=== PATIENT | female | born 1950 | race Caucasian/White ===

== ENCOUNTER 2016-08-25 08:43 | Outpatient (CLI) | payer OTHER | END 2016-08-25 08:44 | disposition home or self-care (01) | DX: M85.89 Other specified disorders of bone density and structure, multiple sites (principal); Z78.0 Asymptomatic menopausal state ==

== ENCOUNTER 2016-08-25 08:46 | Outpatient (CLI) | payer OTHER | END 2016-08-25 08:47 | disposition home or self-care (01) | DX: Z12.31 Encounter for screening mammogram for malignant neoplasm of breast (principal) ==

== ENCOUNTER 2016-09-05 09:09 | Day surgery (SDC) | payer OTHER ==
[2016-09-05] MEDS ORDERED: LACTATED RINGERS 1,000 ML IV ONE (10:28)
[2016-09-05] MEDS ORDERED: fentaNYL 250 MCG/5 ML VIAL IVP ONE (11:04)
[2016-09-05] MEDS ORDERED: MIDAZOLAM 2 MG/2 ML VIAL IVP ONE (11:04)
[2016-09-05] MEDS ORDERED: BENZOCAINE/TETRACAINE/BUTAMBEN SPRAY 56 GM TOP ONE (11:22)
[2016-09-05] MEDS ORDERED: LIDO GARGLE 30 ML BOTTLE PO ONE (11:22)
== END 2016-09-05 09:10 | disposition home or self-care (01) ==
PROC: 0DBN8ZX Excision of Sigmoid Colon, Via Natural or Artificial Opening Endoscopic, Diagnostic (ICD-10-PCS; 2016-09-05)
PROC: 0DBN8ZX Excision of Sigmoid Colon, Via Natural or Artificial Opening Endoscopic, Diagnostic (ICD-10-PCS; 2016-09-05)
PROC: 0DB98ZX Excision of Duodenum, Via Natural or Artificial Opening Endoscopic, Diagnostic (ICD-10-PCS; principal; 2016-09-05 10:30)
PROC: 0DB58ZX Excision of Esophagus, Via Natural or Artificial Opening Endoscopic, Diagnostic (ICD-10-PCS; 2016-09-05 10:30)
DX: Z12.11 Encounter for screening for malignant neoplasm of colon (principal); R12 Heartburn; K21.9 Gastro-esophageal reflux disease without esophagitis; K20.9 Esophagitis, unspecified; D12.5 Benign neoplasm of sigmoid colon; K64.8 Other hemorrhoids; K62.1 Rectal polyp; D17.79 Benign lipomatous neoplasm of other sites; I10 Essential (primary) hypertension; E78.5 Hyperlipidemia, unspecified
CPT/HCPCS: 43239; 45380; 45385; A9270; J7120

== ENCOUNTER 2016-09-08 09:37 | Outpatient (CLI) | payer OTHER | END 2016-09-08 23:59 | DX: E78.5 Hyperlipidemia, unspecified (principal); R73.01 Impaired fasting glucose; R53.83 Other fatigue ==

== ENCOUNTER 2019-07-10 11:37 | Emergency (ER) | payer MEDICARE, OTHER ==
--- NOTE | 2019-07-10 13:46 | ED Physician Documentation ---
PD HPI BACK PAIN - Stated complaint Stated Complaint: BACK PX,FEMALE - Chief complaint Chief Complaint: Back Pain - History obtained from History obtained from: Patient - History of Present Illness Timing - onset: Last night Timing - duration: Hours (12) Timing - details: Abrupt onset, Still present Location: Lower, Right, Left Quality: Pain, Aching Associated symptoms: Incontinent of urine (she says she leaked urine last night once, but does that previously with stress (lifting, cough, etc). No incontinence today. No numbness nor weakness of legs.). No: Fever, Weakness, Numbness Improves with: Rest, Position Worsened by: Movement Contributing factors: Other (onset of the low back pain with stretching last evening, was reaching up overhead and then arching, with feeling of clunk in low back and pain on ROM.). No: Lifting, Twisting Review of Systems Constitutional: denies: Fever, Chills Nose: denies: Rhinorrhea / runny nose, Congestion Throat: denies: Sore throat Respiratory: denies: Cough GI: denies: Abdominal Pain, Nausea, Vomiting : denies: Dysuria, Frequency Neurologic: denies: Focal weakness, Numbness, Near syncope PD PAST MEDICAL HISTORY - Past Medical History Cardiovascular: Hypertension, High cholesterol Respiratory: None, Sleep apnea Endocrine/Autoimmune: None GI: GERD : None, Kidney stones HEENT: None, Chronic vision loss Psych: ADD/ADHD Musculoskeletal: Osteoarthritis Derm: None - Past Surgical History Past Surgical History: Yes /[employer]: Hysterectomy, Oophrectomy HEENT: Tonsil/Adenoidectomy - Present Medications Home Medications: Ambulatory Orders Medication Instructions Recorded Confirmed Atorvastatin [Lipitor] 10 mg PO DAILY 09/15/15 09/05/16 Levofloxacin [Levaquin] 500 mg PO DAILY #9 tablet 09/15/15 09/05/16 oxyCODONE [Roxicodone] 5 mg PO Q4-6H #20 tablet 09/15/15 09/05/16 traMADol [Ultram] 200 mg PO DAILY PRN 09/15/15 09/05/16 Hydrocodone/Acetaminophen [Ophiem 1 each PO Q6H PRN #20 tablet 07/10/19 5-325 Tablet] Tizanidine HCl 4 mg PO TID PRN #25 capsule 07/10/19 dexAMETHasone [Decadron] 4 mg PO DAILY #5 tablet 07/10/19 - Allergies Allergies/Adverse Reactions: Allergies Allergy/AdvReac Type Severity Reaction Status Date / Time No Known Drug Allergies Allergy Verified 01/12/14 09:28 - Social History Does the pt smoke?: No Smoking Status: Never smoker Does the pt drink ETOH?: No Does the pt have substance abuse?: No PD ED PE NORMAL - Vitals Vital signs reviewed: Yes - General General: Alert and oriented X 3, Well developed/nourished, Other (appears uncomf ortable with guarded ROM of the low back both left and right as well as forward flexion. ) - Cardiac Cardiac: RRR, No murmur - Respiratory Respiratory: Clear bilaterally - Abdomen Abdomen: Soft, Non tender - Female Female : Deferred - Rectal Rectal: Deferred - Back Back: No CVA TTP, Other (tender in mid lumbar area and both sides muscles. No redness, rash nor sores. ) - Derm Derm: Normal color, Warm and dry, No rash - Extremities Extremities: No tenderness to palpate, Normal ROM s pain - Neuro Neuro: No motor deficit, No sensory deficit (in legs and around rectal/gluteal area. ), Other (normal patellar reflexes. ) Results - Vitals Vitals: Oxygen O2 Source Room air - Labs Labs: Laboratory Tests 07/10/19 15:07 Urine Color YELLOW Urine Clarity CLEAR Urine pH 5.5 Ur Specific [place] >=1.030 H Urine Protein NEGATIVE Urine Glucose (UA) NEGATIVE Urine Ketones 40 H Urine Occult Blood NEGATIVE Urine Nitrite NEGATIVE Urine Bilirubin NEGATIVE Urine Urobilinogen 0.2 (NORMAL) Ur Leukocyte Esterase NEGATIVE Ur Microscopic Review NOT INDICATED Urine Culture Comments NOT INDICATED - Rads (name of study) lumbar CT Radiology: Prelim report reviewed (no acute process. Age related changes and arthritic changes. Spondylolisthesis L4 and L5, but similar to imaging done in 2016.), See rad report PD MEDICAL DECISION MAKING - ED course Complexity details: considered differential (no acute bony process; spondylolisthesis has been present for years. No neuro symptoms, and no other red flags. ), d/w patient Departure - Departure Disposition: 01 Home, Self Care Clinical Impression: Low back pain Qualifiers: Chronicity: acute Back pain laterality: bilateral Sciatica presence: without sciatica Qualified Code(s): M54.5 - Low back pain Condition: Stable Record reviewed to determine appropriate education?: Yes Instructions: ED Low Back Pain Injury Prescriptions: dexAMETHasone [Decadron] 4 mg PO DAILY #5 tablet Hydrocodone/Acetaminophen [Ophiem 5-325 Tablet] 1 each PO Q6H PRN #20 tablet PRN Reason: Pain Tizanidine HCl 4 mg PO TID PRN #25 capsule PRN Reason: Spasms Comments: Your CT scan does not show any acute process. You do have some arthritic changes and looseness of ligaments in the low back but it similar in appearance to a prior scan of 2016. You can certainly have new back pain related to some shifting of muscles and discs and then spasming as well. Treat this with some anti-inflammatories as well as muscle relaxants and pain medicines. Physical treatments such as physical therapy chiropractic and massage are good as well. Contact your primary care regarding potential order for physical therapy. Recheck if not improved over the next several days. Otherwise follow-up with your primary care next week, call for an appointment. Discharge Date/Time: 07/10/19 16:07
[2019-07-10] MEDS ORDERED: ACETAMINOPHEN 325 MG TABLET PO STA (14:06)
[2019-07-10 15:14] LABS: GLUCOSE, URINE (UA) NEGATIVE (NEGATIVE); KETONES,URINE (UA) 40 mg/dL (NEGATIVE); LEUKOCYTE ESTERASE, URINE NEGATIVE (NEGATIVE); NITRITE,URINE NEGATIVE (NEGATIVE); OCCULT BLOOD,URINE NEGATIVE (NEGATIVE); PH,URINE 5.5 PH (5.0-7.5); PROTEIN,URINE NEGATIVE (NEGATIVE); UROBILINOGEN,URINE 0.2 (NORMAL) E.U./dL (NORMAL)
[2019-07-10 15:19] LABS: BILIRUBIN,URINE NEGATIVE (NEGATIVE); CLARITY,URINE CLEAR (CLEAR); ICTOTEST,URINE NEGATIVE
--- NOTE | 2019-07-10 15:35 | CT Report ---
Reason: abrupt low back pain Procedure Date: 07/10/2019 Accession Number: [id number] / [id number] Procedure: CT - LUMBAR SPINE WO CPT Code: Final Report FULL RESULT: EXAM: CT LUMBAR SPINE WITHOUT CONTRAST EXAM DATE: 07/10/2019 02:55 PM. CLINICAL HISTORY: Bilateral sciatica and low back pain after stretching yesterday. COMPARISONS: None. TECHNIQUE: Thin-section axial images were acquired of the lumbar spine from T12 to S1 without contrast. Post-processing: Coronal and sagittal reformats. Other: None. In accordance with CT protocol optimization, one or more of the following dose reduction techniques were utilized for this exam: automated exposure control, adjustment of mA and/or KV based on patient size, or use of iterative reconstructive technique. FINDINGS: Alignment: Mild left convex curvature centered at L3-L4 measuring 10 degrees. Grade 1/2 anterolisthesis of L4 on L5 measuring 7 mm. Grade 2 anterolisthesis of L5 on S1 measuring 10 mm. Bones: Five [id number] lumbar vertebral bodies are present. No fractures or bone lesions. Disk Levels/Facets: T11-T12: Moderate to severe disk height loss. Disk osteophyte complex causing mild central canal stenosis and mild right bony neural foraminal narrowing. T12-L1: Unremarkable. L1-L2: Unremarkable. L2-L3: Unremarkable. L3-L4: Mild disk height loss. Disk osteophyte complex and mild bilateral neuropathy without significant central canal stenosis or bony neural foraminal narrowing. L4-L5: Moderate disk height loss. Disk osteophyte complex moderate to severe bilateral facet arthropathy, and ligamentum flavum hypertrophy superimposed on grade 1/2 anterolisthesis causing moderate central canal stenosis and mild right neural foraminal narrowing. L5-S1: Moderate disk height loss. Disk osteophyte complex, severe left and moderate to severe right facet arthropathy, and ligamentum flavum hypertrophy superimposed on grade 1 anterolisthesis causing moderate central canal stenosis and mild bilateral neural foraminal narrowing. Other: Mild to moderate atherosclerotic calcifications within the aorta and visualized iliac arteries. Sigmoid diverticulosis. IMPRESSION: 1. Multilevel degenerative disk disease and facet arthropathy, as detailed above, most pronounced at L4-L5 and L5-S1 with associated grade 1/2 anterolisthesis at L4-L5 and grade 2 anterolisthesis at L5-S1. 2. No acute bony abnormality. RADIA
[2019-07-10 15:56] VITALS: BP 147/92
== END 2019-07-10 16:07 | disposition home or self-care (01) ==
LOC: ED 11:37
DX: M43.16 Spondylolisthesis, lumbar region (principal); M51.36 Other intervertebral disc degeneration, lumbar region; I10 Essential (primary) hypertension
CPT/HCPCS: 72131; 81003; 99284; A9270; 81001; 87086

== ENCOUNTER 2020-08-18 09:24 | Outpatient (CLI) | payer MEDICARE | END 2020-08-18 09:25 | disposition home or self-care (01) | LOC: DI 09:24 | PROVIDERS: ATTEND Internal Medicine Cardiovascular Disease | DX: I10 Essential (primary) hypertension (principal); R06.09 Other forms of dyspnea; I35.8 Other nonrheumatic aortic valve disorders | CPT/HCPCS: 93306 ==

== ENCOUNTER 2022-07-18 08:56 | Outpatient (CLI) | payer MEDICARE ==
--- NOTE | 2022-07-19 09:45 | Mammography Report ---
BILATERAL DIGITAL SCREENING MAMMOGRAM 3D/2D WITH EXAGGERATED CC: 07/18/2022 CLINICAL: Routine screening. Comparison is made to exams dated: 08/25/2016 mammogram and 11/18/2013 mammogram - [facility]. There are scattered areas of fibroglandular density in both breasts (category b / 25%-50% glandular t issue). No significant masses, calcifications, or other findings are seen in either breast. There has been no significant interval change. IMPRESSION: NEGATIVE There is no mammographic evidence of malignancy. A 1 year screening mammogram is recommended. Based on the Tyrer Cuzick model (a risk assessment model) the patients lifetime risk is 3.3% and her 10 year risk is 2.2%. According to the ACR, ACS, and NCCN guidelines, an annual breast MRI exam abby g with mammogram is recommended if the patients lifetime risk is 20% or greater. This exam was interpreted at Station ID: [id number]. NOTE: For mammograms, a report in lay terms will be sent to the patient. Approximately 15% of breast malignancies will not be visualized mammographically. In the management of a palpable breast mass, a negative mammogram must not discourage biopsy of a clinically suspicious lesion. Electronically Signed By: Raciel Gomez M.D., jr/calin:07/18/2022 10:57:10 ACR BI-RADS Category 1: Negative 3341F PARENCHYMAL PATTERN: (A) - The breast(s) demonstrate(s) scattered fibroglandular densities. BI-RADS CATEGORY: (1) - 1 RECOMMENDATION: (ANNUAL) - Recommend routine annual screening mammography. [id number] 1 year screening LATERALITY: (B)
== END 2022-07-18 08:57 | disposition home or self-care (01) ==
LOC: DI.S 08:56
PROVIDERS: ATTEND Physician Assistant
DX: Z12.31 Encounter for screening mammogram for malignant neoplasm of breast (principal)

== ENCOUNTER 2023-07-24 02:40 | Outpatient (CLI) | payer MEDICARE | END 2023-07-24 02:41 | disposition critical access hospital (66) | LOC: EMS 02:40 | DX: Z46.89 Encounter for fitting and adjustment of other specified devices (principal); R14.0 Abdominal distension (gaseous) | CPT/HCPCS: A0425; A0429 ==

== ENCOUNTER 2023-07-24 03:13 | Emergency (ER) | payer MEDICARE ==
[2023-07-24 03:35] VITALS: BP 151/83; O2SAT 99
--- NOTE | 2023-07-24 03:47 | ED Physician Documentation ---
History of Present Illness - Stated complaint Stated Complaint: COLOSTOMY BAG ISSUES - Chief complaint Chief Complaint: General - History obtained from History obtained from: Patient, EMS - Additonal information Additional information: The patient comes to the emergency department via EMS for chief complaint of "Leaking ileostomy bag". 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 The patient states that the output has been fine, but that today, she noticed the bag was leaking. Her sons helped put a new bag on and she felt that it had sealed well but within the hour, she noticed that the stool had leaked through and the adhesive from her skin and there is stool leaking again. She called EMS and they brought her here. The patient states she is post get sturdier bags later today but in the meantime, has been using the softer bags with only adhesive. She has had a little bit of bloating in her abdomen, but no pain. She denies fevers or chills. She otherwise feels well. No other complaints at this time. 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 HEENT: Tonsil/Adenoidectomy - Present Medications Home Medications: Ambulatory Orders Medication Instructions Recorded Confirmed Atorvastatin [Lipitor] 10 mg PO DAILY 09/15/15 09/05/16 levoFLOXacin [Levaquin] 500 mg PO DAILY #9 tablet 09/15/15 09/05/16 oxyCODONE [Roxicodone] 5 mg PO Q4-6H #20 tablet 09/15/15 09/05/16 traMADol [Ultram] 200 mg PO DAILY PRN 09/15/15 09/05/16 Hydrocodone/Acetaminophen [[place] 1 each PO Q6H PRN #20 tablet 07/10/19 5-325 Tablet] Tizanidine HCl 4 mg PO TID PRN #25 capsule 07/10/19 dexAMETHasone [Decadron] 4 mg PO DAILY #5 tablet 07/10/19 - Allergies Allergies/Adverse Reactions: Allergies Allergy/AdvReac Type Severity Reaction Status Date / Time No Known Drug Allergies Allergy Verified 07/24/23 03:17 - Social History Does the pt smoke?: No Smoking Status: Never smoker Does the pt drink ETOH?: No Does the pt have substance abuse?: No PD ED PE NORMAL - Vitals Vital signs reviewed: Yes - General General: Alert and oriented X 3, No acute distress, Well developed/nourished - HEENT HEENT: Atraumatic, PERRL, EOMI, Moist mucous membranes - Neck Neck: Supple, no meningeal sign - Cardiac Cardiac: RRR, No murmur - Respiratory Respiratory: No respiratory distress, Clear bilaterally - Abdomen Abdomen: Soft, Non tender, Non distended, Other (Ileostomy bag in place with some stool leaking underneath the adhesive ring. Ostomy site appears healthy with good mucosal color.) - Derm Derm: Warm and dry - Extremities Extremities: No deformity - Neuro Neuro: Alert and oriented X 3 - Psych Psych: Normal mood, Normal affect Results - Vitals Vitals: Vital Signs - 24 hr 07/24/23 03:18 Temperature 36.6 C Heart Rate 109 H Respiratory 16 Rate Blood Pressure 151/83 H O2 Saturation 99 Oxygen O2 Source Room air PD Medical Decision Making - ED course Complexity details: considered differential, d/w patient ED course: Ileostomy bag was changed and functioning well. There is no leakage noted. The patient was stable for discharge home. We have discussed the need for follow- up with her surgeon as well as usual indications for return. Departure - Departure Disposition: 01 Home, Self Care Clinical Impression: Ileostomy bag changed Condition: Stable Comments: Your ostomy site looks good. There is no evidence of a problem with the site itself. You have good output and good healthy appearing tissue. It is not clear why you are Veronica became from your abdominal wall, but we have replaced the bag and firmly fixed it. If you continue to have problems, you will need to talk to your surgeon and figure out what is going on.
== END 2023-07-24 04:45 | disposition home or self-care (01) ==
LOC: EDUNIT# → ED 03:13
DX: K94.13 Enterostomy malfunction (principal); I10 Essential (primary) hypertension; E78.00 Pure hypercholesterolemia, unspecified; G47.30 Sleep apnea, unspecified; K21.9 Gastro-esophageal reflux disease without esophagitis; Z87.442 Personal history of urinary calculi; Z79.899 Other long term (current) drug therapy
CPT/HCPCS: 99283